=== PATIENT | male | born 1980 | race Caucasian/White ===

== ENCOUNTER 2017-05-13 16:52 | Emergency (ER) | payer MEDICAID, OTHER ==
[~2017-05-13] VITALS: Ht 170.2 cm; Wt 97.5 kg
[2017-05-13 17:01] VITALS: BP 152/95
== END 2017-05-13 17:46 | disposition home or self-care (01) ==
LOC: ED 17:35
DX: S01.532A Puncture wound without foreign body of oral cavity, initial encounter (principal); L02.01 Cutaneous abscess of face; W64.XXXA Exposure to other animate mechanical forces, initial encounter; Y93.89 Activity, other specified; Y92.89 Other specified places as the place of occurrence of the external cause; Y99.8 Other external cause status
CPT/HCPCS: 10060

== ENCOUNTER 2017-06-03 16:16 | Emergency (ER) | payer SELFPAY ==
[~2017-06-03] VITALS: Ht 170.2 cm; Wt 99.9 kg
[2017-06-03 16:21] VITALS: BP 177/102
[2017-06-03] MEDS ORDERED: BUPIVACAINE/PF 0.5% ONE (17:14)
[2017-06-03] MEDS ORDERED: HYDROcodone/APAP 5/325 TABLET ONE (17:15)
[2017-06-03] MEDS ORDERED: BUPIVACAINE/PF 0.5% INFIL ONE (17:30)
[2017-06-03] MEDS ORDERED: HYDROcodone/APAP 5/325 TABLET PO ONE (17:30)
== END 2017-06-03 17:23 | disposition home or self-care (01) ==
LOC: ED 16:49
DX: K04.7 Periapical abscess without sinus (principal); I10 Essential (primary) hypertension; Z90.49 Acquired absence of other specified parts of digestive tract
CPT/HCPCS: 99283

== ENCOUNTER 2018-09-23 05:29 | Emergency (ER) | payer MEDICAID, OTHER ==
[~2018-09-23] VITALS: Ht 170.2 cm; Wt 90.9 kg
--- NOTE | 2018-09-23 05:51 | NUR ---
PT TO BE SEEN FOR SWELLING IN RIGHT TESTICLE SINCE SUNDAY
[2018-09-23] MEDS ORDERED: OXYcodone/APAP 10/325MG TABLET ONE (05:52)
[2018-09-23] MEDS ORDERED: OXYcodone/APAP 10/325MG TABLET PO ONE (06:00)
[2018-09-23 06:23] LABS: ALBUMIN 3.4 g/dL (3.4-5.0); ANION GAP 7 mmol/L (5-15); CALCIUM 8.7 mg/dL (8.5-10.1); CHLORIDE 106 mmol/L (98-107)
[2018-09-23 06:24] LABS: CREATININE 1.11 mg/dL (0.7-1.3)
[2018-09-23 06:27] LABS: MEAN CORPUSCULAR HEMOGLOBIN 29.4 pg (27.5-34.5); MEAN CORPUSCULAR HGB CONC 33.7 g/dL (33.2-36.2); MEAN CORPUSCULAR VOLUME 87.2 fL (81-97); MEAN PLATELET VOLUME 9.4 fL (7.4-10.4); PLATELET COUNT 383 x10^3/uL (130-400); RED BLOOD COUNT 5.35 x10^6/uL (4.38-5.82); RED CELL DISTRIBUTION WIDTH 13.8 % (9.4-14.8)
--- NOTE | 2018-09-23 06:52 | NUR ---
bs report to radha robison
--- NOTE | 2018-09-23 06:53 | NUR ---
Recieved bedside report from JING Serna. All questions answered. Pt resting on gurney connected to monitors. NADN. All safety measures in place. No needs expressed at this time.
[2018-09-23 06:57] LABS: BASOPHILS # (AUTO) 0.08 x10^3/uL (0-0.1); BASOPHILS % (AUTO) 1 % (0-1); EOSINOPHILS # (AUTO) 0.28 x10^3/uL (0-0.4); EOSINOPHILS % (AUTO) 2 % (1-7); LYMPHOCYTES # (AUTO) 2.19 x10^3/uL (1-3.4); LYMPHOCYTES % (AUTO) 13 % (22-44); MD SCAN; MONOCYTES # (AUTO) 1.17 x10^3/uL (0.2-0.8); MONOCYTES % (AUTO) 7 % (2-9); NEUTROPHILS # (AUTO) 13.45 x10^3/uL (1.8-6.8); NEUTROPHILS % (AUTO) 78 % (42-75)
--- NOTE | 2018-09-23 07:52 | NUR ---
Pt resting on gurney connected to NIBP and pulse ox. Pt states, "my pain is a 3/10 throbbing pain in my right testicle." Pt aware urine sample need. Pt states, "I might need some water in order to pee." NADN. Pt has call light within reach. All safety measures in place.
[2018-09-23] MEDS ORDERED: CEFTRIAXONE 1,000 MG IM ONE (08:00)
[2018-09-23] MEDS ORDERED: CEFTRIAXONE 250 MG ONE (08:22)
[2018-09-23] MEDS ORDERED: CEFTRIAXONE 1,000 MG ONE (08:29)
[2018-09-23 08:37] LABS: MICROSCOPIC INDICATED
[2018-09-23 08:38] LABS: CULTURE INDICATED? YES
--- NOTE | 2018-09-23 08:41 | NUR ---
Patient given discharge instructions and they have confirmed that they understand the instructions. Patient ambulatory with steady gait. Pt left with all personal belongings, discharge paperwork, and prescriptions.
--- NOTE | 2018-09-23 08:41 | NUR ---
Provided medication per [facility].
[2018-09-23 08:42] VITALS: BP 146/83
== END 2018-09-23 08:46 | disposition home or self-care (01) ==
LOC: ED 06:38
DX: N45.1 Epididymitis (principal); I10 Essential (primary) hypertension; F17.200 Nicotine dependence, unspecified, uncomplicated; Z90.89 Acquired absence of other organs; Z90.49 Acquired absence of other specified parts of digestive tract
CPT/HCPCS: 36415; 76870; 80048; 81001; 82040; 85025; 87086; 87491; 87591; 96372; 99284; J0696